=== PATIENT | male | born 1960 ===

== ENCOUNTER 2022-01-15 06:12 | Inpatient (IN) ==
[2022-01-11 11:50] LABS: Basophils # 0.1 10*3/uL (0.0-0.2); Basophils % 0.6 % (0.0-0.8); Eosinophils # 0.2 10*3/uL (0.0-0.87); Eosinophils % 2.9 % (0.00-10.9); Hemoglobin 13.5 GM/DL (14.0-18.0); Immature Granulocytes % 0.4 %; Immature Granulocytes Absolute 0.03 #; Lymphocytes % 37.7 % (21.2-54.2); Mean Corpuscular HGB Conc 34.6 GM/DL (32-36); Mean Corpuscular Volume 86.7 FL (87-102); Mean Platelet Volume 11.9 FL (9.6-12.0); Monocytes # 0.6 10*3/uL (0.11-0.8); Monocytes % 7.6 % (1.7-12.7); Neutrophils % 50.8 % (38.7-73.9); Platelet Count 243 T/CUMM (130-400); Red Cell Distribution Width 12.4 % (9.3-17.3); White Blood Count 7.9 T/CUMM (4-12)
[2022-01-11 12:14] LABS: Albumin 3.4 G/DL (3.4-5.0); Bilirubin,Total 0.5 MG/DL (0.20-1.00); Calcium 8.6 MG/DL (8.5-10.1); Osmolality,Calculated 295.5 MOS/KG (273-304); Potassium 4.1 MMOL/L (3.5-5.1); Total Protein 7.1 G/DL (6.4-8.2)
[~2022-01-15 06:12] MED LIST: ALVIMOPAN 12 MG CAPSULE PO ONE; DEXAMETHASONE 4 MG/1 ML VIAL ONE; GLYCOPYRROLATE 0.4 MG/2 ML VIAL ONE; LIDOCAINE 2% 5 ML VIAL ONE; MIDAZOLAM 2 MG/2 ML VIAL ONE; ONDANSETRON 4 MG/2 ML VIAL ONE; ROCURONIUM 50 MG/5 ML VIAL IV ONE; SODIUM CHLORIDE 0.9% 250 ML IV ONE; SODIUM PHOSPHATE ENEMA 133 ML BOTTLE RECTAL ONE; SUCCINYLCHOLINE 200 MG/10 ML VIAL ONE; cefTRIAXone 1,000 MG in SODIUM CHLORIDE 0.9% 100 ML IV ONE; fentaNYL 100 MCG/2 ML VIAL ONE; propofoL 200 MG/20 ML VIAL IV ONE
[2022-01-15] MEDS ORDERED: PHENYLEPHRINE 10 MG/1 ML VIAL IV ONE (06:22)
[2022-01-15] MEDS ORDERED: ROPIVACAINE 0.5% 30 ML VIAL ONE (06:36)
[2022-01-15] MEDS ORDERED: ePHEDrine 50 MG/ML VIAL ONE (07:27)
[2022-01-15] MEDS ORDERED: fentaNYL 100 MCG/2 ML VIAL ONE (07:32)
[2022-01-15] MEDS ORDERED: ACETAMINOPHEN INJ 1,000 MG/100 ML VIAL IV ONE (07:38)
[2022-01-15] MEDS ORDERED: LIDOCAINE 2% TOP JELLY 20 ML VIAL INTRAURETH ONE (07:39)
[2022-01-15] MEDS ORDERED: ROCURONIUM 50 MG/5 ML VIAL IV ONE (08:29)
[2022-01-15] MEDS ORDERED: SEVOFLURANE 1 UNIT/15 MINUTE INH ONE (10:11)
[2022-01-15] MEDS ORDERED: SUGAMMADEX 200 MG/2 ML VIAL IV ONE (10:52)
[2022-01-15] MEDS ORDERED: LACTATED RINGERS 1,000 ML IV ONE (11:12)
[2022-01-15] MEDS ORDERED: ONDANSETRON 4 MG/2 ML VIAL IV PRN ×2 (11:35→12:07)
[2022-01-15] MEDS ORDERED: SIMETHICONE CHEW 125 MG TABLET PO PRN (11:35)
[2022-01-15] MEDS ORDERED: LACTULOSE 20 GM/30 ML UDCUP PO PRN (11:35)
[2022-01-15] MEDS ORDERED: diphenhydrAMINE 50 MG/1 ML VIAL IV PRN (11:35)
[2022-01-15] MEDS ORDERED: MAGNESIUM HYDROXIDE SUSP 30 ML UDCUP PO PRN (11:35)
[2022-01-15] MEDS ORDERED: PROMETHAZINE 25 MG/1 ML VIAL IM PRN (11:35)
[2022-01-15] MEDS ORDERED: GLUCAGON 1 MG VIAL IM PRN (11:41)
[2022-01-15] MEDS ORDERED: cefTRIAXone 1,000 MG in SODIUM CHLORIDE 0.9% 100 ML IV SCH (12:00)
[2022-01-15] MEDS ORDERED: DEXTROSE 10% 250 ML BAG IV PRN (12:00)
[2022-01-15 12:01] LABS: Bilirubin,Urine Negative (Negative); Blood, Urine Large mg/dL (Negative); Glucose,Urine (UA) 250 mg/dL (Negative); Ketones,Urine Negative (Negative); Nitrite,Urine Negative (Negative); Protein,Urine Negative (Negative); Urine Appearance Clear (Clear); Urine Color Yellow (Yellow); Urine Specific Gravity 1.025 (1.001-1.035); Urine Urobilinogen 0.2 eU/dL (<2.0)
[2022-01-15 12:04] LABS: Mucus,Urine Occasional /LPF (Occasional); RBC,Urine 349 /HPF (0-4); Squamous Epithelial Cell,Urine Occasional /HPF (0-10)
[2022-01-15] MEDS: HYDROmorphone 1 MG/1 ML SYRINGE IV PRN ×3 (12:20→17:11)
[2022-01-15 12:24] LABS: Basophils # 0.1 10*3/uL (0.0-0.2); Basophils % 0.3 % (0.0-0.8); Eosinophils % 0.1 % (0.00-10.9); Hematocrit 39.3 VOL% (42.0-52.0); Hemoglobin 13.1 GM/DL (14.0-18.0); Immature Granulocytes % 0.6 %; Immature Granulocytes Absolute 0.09 #; Lymphocytes # 1.5 10*3/uL (1.4-4.0); Lymphocytes % 10.1 % (21.2-54.2); Mean Corpuscular HGB Conc 33.3 GM/DL (32-36); Mean Corpuscular Volume 89.5 FL (87-102); Mean Platelet Volume 10.8 FL (9.6-12.0); Monocytes # 0.4 10*3/uL (0.11-0.8); Monocytes % 2.7 % (1.7-12.7); Neutrophils % 86.2 % (38.7-73.9); Platelet Count 218 T/CUMM (130-400); Red Blood Count 4.39 MC/CUMM (3.8-5.5); Red Cell Distribution Width 12.3 % (9.3-17.3); White Blood Count 14.6 T/CUMM (4-12)
[2022-01-15 12:44] LABS: Calcium 8.4 MG/DL (8.5-10.1); Osmolality,Calculated 285.2 MOS/KG (273-304); Potassium 5.7 MMOL/L (3.5-5.1)
[2022-01-15] MEDS: ACETAMINOPHEN 325 MG TABLET PO SCH ×3 (13:27→23:00)
[2022-01-15] MEDS: SODIUM CHLORIDE 0.9% 1,000 ML IV SCH ×2 (13:28→21:11)
[2022-01-15] MEDS: OXYBUTYNIN 5 MG TABLET PO SCH ×2 (15:02→21:10)
[2022-01-15] MEDS: INSULIN REGULAR 100 UNIT/ML SUBCUT SCH ×2 (17:08→21:10)
[2022-01-15] MEDS: DOCUSATE SODIUM 100 MG CAPSULE PO SCH (21:10)
[2022-01-15] MEDS: ALVIMOPAN 12 MG CAPSULE PO SCH (21:10)
[2022-01-15] MEDS: ATORVASTATIN 40 MG TABLET PO SCH (21:10)
[2022-01-15] MEDS: METOPROLOL TARTRATE 50 MG TABLET PO SCH (21:13)
[2022-01-15] MEDS: oxyCODONE/ACETAMINOPHEN 5-325 MG TABLET PO PRN (23:04)
[2022-01-16] MEDS: HYDROmorphone 1 MG/1 ML SYRINGE IV PRN ×4 (03:04→17:31)
[2022-01-16] MEDS: SODIUM CHLORIDE 0.9% 1,000 ML IV SCH (03:04)
[2022-01-16] MEDS: ACETAMINOPHEN 325 MG TABLET PO SCH ×4 (05:25→23:05)
[2022-01-16 06:05] LABS: Basophils % 0.2 % (0.0-0.8); Eosinophils % 0.1 % (0.00-10.9); Hematocrit 32.7 VOL% (42.0-52.0); Hemoglobin 11.1 GM/DL (14.0-18.0); Immature Granulocytes % 0.3 %; Immature Granulocytes Absolute 0.03 #; Lymphocytes # 2.3 10*3/uL (1.4-4.0); Lymphocytes % 21.8 % (21.2-54.2); Mean Corpuscular HGB Conc 33.9 GM/DL (32-36); Mean Corpuscular Volume 87.9 FL (87-102); Mean Platelet Volume 10.8 FL (9.6-12.0); Monocytes % 9.8 % (1.7-12.7); Neutrophils % 67.8 % (38.7-73.9); Platelet Count 185 T/CUMM (130-400); Red Blood Count 3.72 MC/CUMM (3.8-5.5); Red Cell Distribution Width 12.4 % (9.3-17.3); White Blood Count 10.6 T/CUMM (4-12)
[2022-01-16 06:32] LABS: Calcium 8.3 MG/DL (8.5-10.1); Potassium 4.1 MMOL/L (3.5-5.1)
[2022-01-16] MEDS: INSULIN REGULAR 100 UNIT/ML SUBCUT SCH ×4 (09:18→20:52)
[2022-01-16 09:33] LABS: Risk Ratio 3.44; Thyroid Stimulating Hormone 0.695 uIU/ml (0.358-3.74); VLDL Cholesterol 25.6 MG/DL
[2022-01-16] MEDS: cefTRIAXone 1,000 MG in SODIUM CHLORIDE 0.9% 100 ML IV SCH (09:36)
[2022-01-16] MEDS: DOCUSATE SODIUM 100 MG CAPSULE PO SCH ×2 (09:36→20:52)
[2022-01-16] MEDS: METOPROLOL TARTRATE 50 MG TABLET PO SCH ×2 (09:36→20:52)
[2022-01-16] MEDS: OXYBUTYNIN 5 MG TABLET PO SCH ×3 (09:36→20:52)
[2022-01-16] MEDS: amLODIPine 5 MG TABLET PO SCH (09:36)
[2022-01-16] MEDS: ALVIMOPAN 12 MG CAPSULE PO SCH ×2 (09:36→20:52)
[2022-01-16 09:47] LABS: % Iron Saturation 22.7 % (18-50); Ferritin 125.5 ng/mL (26-388)
[2022-01-16 09:51] LABS: Folate 5.37 NG/ML (5.38-24.0); Vitamin B12 817 PG/ML (211-911)
[2022-01-16 12:10] LABS: Basophils % 0.3 % (0.0-0.8); Eosinophils % 0.3 % (0.00-10.9); Hematocrit 40.1 VOL% (42.0-52.0); Hemoglobin 13.5 GM/DL (14.0-18.0); Immature Granulocytes % 0.6 %; Immature Granulocytes Absolute 0.08 #; Lymphocytes % 14.8 % (21.2-54.2); Mean Corpuscular HGB Conc 33.7 GM/DL (32-36); Mean Corpuscular Volume 89.9 FL (87-102); Mean Platelet Volume 11.5 FL (9.6-12.0); Monocytes % 7.6 % (1.7-12.7); Neutrophils % 76.4 % (38.7-73.9); Platelet Count 228 T/CUMM (130-400); Red Blood Count 4.46 MC/CUMM (3.8-5.5); Red Cell Distribution Width 12.6 % (9.3-17.3); White Blood Count 13.3 T/CUMM (4-12)
[2022-01-16 13:51] LABS: Sedimentation Rate-Westergren 32 MM/HR (0-20)
[2022-01-16] MEDS: FOLIC ACID 1 MG TABLET PO SCH (20:52)
[2022-01-16] MEDS: ATORVASTATIN 40 MG TABLET PO SCH (20:52)
[2022-01-16] MEDS: oxyCODONE/ACETAMINOPHEN 5-325 MG TABLET PO PRN (23:06)
[2022-01-17] MEDS: ACETAMINOPHEN 325 MG TABLET PO SCH ×3 (05:02→17:42)
[2022-01-17] MEDS: oxyCODONE/ACETAMINOPHEN 5-325 MG TABLET PO PRN ×4 (05:03→22:53)
[2022-01-17 05:18] LABS: Basophils % 0.3 % (0.0-0.8); Eosinophils # 0.1 10*3/uL (0.0-0.87); Hematocrit 35.7 VOL% (42.0-52.0); Immature Granulocytes % 0.4 %; Immature Granulocytes Absolute 0.04 #; Lymphocytes # 3.4 10*3/uL (1.4-4.0); Lymphocytes % 29.8 % (21.2-54.2); Mean Corpuscular HGB Conc 33.6 GM/DL (32-36); Mean Corpuscular Volume 88.6 FL (87-102); Mean Platelet Volume 11.1 FL (9.6-12.0); Monocytes # 1.1 10*3/uL (0.11-0.8); Monocytes % 9.3 % (1.7-12.7); Neutrophils % 59.2 % (38.7-73.9); Platelet Count 188 T/CUMM (130-400); Red Blood Count 4.03 MC/CUMM (3.8-5.5); Red Cell Distribution Width 12.6 % (9.3-17.3); White Blood Count 11.4 T/CUMM (4-12)
[2022-01-17 05:40] LABS: Calcium 8.6 MG/DL (8.5-10.1); Osmolality,Calculated 283.4 MOS/KG (273-304); Potassium 4.2 MMOL/L (3.5-5.1)
[2022-01-17] MEDS: INSULIN REGULAR 100 UNIT/ML SUBCUT SCH ×4 (07:21→22:51)
[2022-01-17] MEDS ORDERED: BISACODYL 10 MG SUPP RECTAL ONE (07:49)
[2022-01-17] MEDS: cefTRIAXone 1,000 MG in SODIUM CHLORIDE 0.9% 100 ML IV SCH (09:21)
[2022-01-17] MEDS: DOCUSATE SODIUM 100 MG CAPSULE PO SCH ×2 (09:24→22:46)
[2022-01-17] MEDS: ALVIMOPAN 12 MG CAPSULE PO SCH ×2 (09:24→22:47)
[2022-01-17] MEDS: METOPROLOL TARTRATE 50 MG TABLET PO SCH ×2 (09:25→22:48)
[2022-01-17] MEDS: OXYBUTYNIN 5 MG TABLET PO SCH ×3 (09:25→22:47)
[2022-01-17] MEDS: FOLIC ACID 1 MG TABLET PO SCH ×2 (09:25→22:48)
[2022-01-17] MEDS: amLODIPine 5 MG TABLET PO SCH (09:25)
[2022-01-17] MEDS: POLYETHYLENE GLYCOL POWDER 17 GM PACK PO SCH (14:27)
[2022-01-17] MEDS: ATORVASTATIN 40 MG TABLET PO SCH (22:48)
[2022-01-18] MEDS: ACETAMINOPHEN 325 MG TABLET PO SCH ×2 (02:22→05:35)
[2022-01-18] MEDS: oxyCODONE/ACETAMINOPHEN 5-325 MG TABLET PO PRN ×2 (05:36→08:54)
[2022-01-18 06:09] LABS: Basophils # 0.1 10*3/uL (0.0-0.2); Basophils % 0.7 % (0.0-0.8); Eosinophils # 0.3 10*3/uL (0.0-0.87); Eosinophils % 2.8 % (0.00-10.9); Hematocrit 36.3 VOL% (42.0-52.0); Hemoglobin 12.2 GM/DL (14.0-18.0); Immature Granulocytes % 0.5 %; Immature Granulocytes Absolute 0.05 #; Lymphocytes # 2.3 10*3/uL (1.4-4.0); Lymphocytes % 23.4 % (21.2-54.2); Mean Corpuscular HGB Conc 33.6 GM/DL (32-36); Mean Corpuscular Volume 88.3 FL (87-102); Mean Platelet Volume 11.5 FL (9.6-12.0); Monocytes % 9.7 % (1.7-12.7); Neutrophils % 62.9 % (38.7-73.9); Platelet Count 200 T/CUMM (130-400); Red Blood Count 4.11 MC/CUMM (3.8-5.5); Red Cell Distribution Width 12.5 % (9.3-17.3); White Blood Count 9.9 T/CUMM (4-12)
[2022-01-18 06:21] LABS: Osmolality,Calculated 278.7 MOS/KG (273-304); Potassium 3.7 MMOL/L (3.5-5.1)
[2022-01-18 07:45] VITALS: BP 145/75
[2022-01-18] MEDS: INSULIN REGULAR 100 UNIT/ML SUBCUT SCH (08:51)
[2022-01-18] MEDS: OXYBUTYNIN 5 MG TABLET PO SCH (08:51)
[2022-01-18] MEDS: DOCUSATE SODIUM 100 MG CAPSULE PO SCH (08:51)
[2022-01-18] MEDS: METOPROLOL TARTRATE 50 MG TABLET PO SCH (08:51)
[2022-01-18] MEDS: amLODIPine 5 MG TABLET PO SCH (08:52)
[2022-01-18] MEDS: FOLIC ACID 1 MG TABLET PO SCH (08:52)
[2022-01-18] MEDS: ALVIMOPAN 12 MG CAPSULE PO SCH (08:52)
[2022-01-18] MEDS: POLYETHYLENE GLYCOL POWDER 17 GM PACK PO SCH (08:53)
[2022-01-18] MEDS: cefTRIAXone 1,000 MG in SODIUM CHLORIDE 0.9% 100 ML IV SCH (09:58)
== END 2022-01-18 10:25 | disposition home or self-care (01) | DRG 707 ==
LOC: N.OR 06:12 → N.SDSINP 06:13 → N.3E 13:08
PROVIDERS: ADMIT Surgery; ATTEND Surgery